=== PATIENT | male | born 1940 | race Caucasian/White ===

== ENCOUNTER 2019-12-06 17:45 | Inpatient (IN) | payer MEDICARE ==
[~2019-12-06] VITALS: Ht 167.6 cm; Wt 81.6 kg
[2019-12-06] MEDS ORDERED: BUPIVACAINE/PF 0.5% 30ML VIAL ONE (17:46)
[2019-12-06] MEDS ORDERED: CEFAZOLIN SODIUM 1 GM VIAL ONE (18:09)
[2019-12-06] MEDS ORDERED: TETANUS/DIPHTHERIA TOXOID [ADULT] 0.5 ML VIAL IM ONE (18:10)
[2019-12-06] MEDS ORDERED: SODIUM CHLORIDE 0.9% 100 ML IV ONE (18:11)
[2019-12-06 18:17] LABS: BASOPHILS % (AUTO) 0.8 % (0.0-5.0); EOSINOPHILS % (AUTO) 1.5 % (0.0-8.0); HEMATOCRIT 41.3 % (42-54); LYMPHOCYTES % (AUTO) 39.9 % (21.0-51.0); MEAN CORPUSCULAR HEMOGLOBIN 30.9 pg (27.0-33.0); MEAN CORPUSCULAR HGB CONC 33.7 g/dL (32.0-36.0); MEAN CORPUSCULAR VOLUME 91.8 fL (79-99); MONOCYTES % (AUTO) 8.1 % (3.0-13.0); NEUTROPHILS % (AUTO) 49.4 % (40.0-77.0); PLATELET COUNT (AUTO) 250 K/uL (130-400); WHITE BLOOD COUNT (AUTO) 7.9 K/uL (4.8-10.8)
[2019-12-06 18:21] LABS: CARBON DIOXIDE 29 mmol/L (21-32); CHLORIDE 104 mmol/L (101-111); CREATININE 1.1 mg/dL (0.5-1.5); GLOMERULAR FILTR. RATE CALC 69 mL/min (>60); GLUCOSE,RANDOM 94 mg/dL (70-105); POTASSIUM 3.9 mmol/L (3.5-5.1); SODIUM SERUM 140 mmol/L (136-145); UREA NITROGEN, BLOOD 15 mg/dL (7-18)
[2019-12-06 18:25] LABS: ALANINE AMINOTRANSFERASE 19 U/L (12-78); ALBUMIN 4.1 g/dL (3.5-5.0); ASPARTATE AMINOTRANSFERASE 15 U/L (10-37); BILIRUBIN,TOTAL 0.3 mg/dL (0.2-1.0); CREATINE KINASE, TOTAL 101 U/L (21-232); TOTAL PROTEIN, SERUM 7.3 g/dL (6.0-8.3)
[2019-12-06 18:27] LABS: ALCOHOL, BLOOD < 3 mg/dL (0-10)
[2019-12-06 18:33] LABS: INR 0.93 (0.85-1.15); PARTIAL THROMBOPLASTIN TIME 26.9 SEC (26.3-35.5); PROTHROMBIN TIME 10.1 SEC (9.6-11.6)
[2019-12-06 18:47] LABS: APPEARANCE,URINE Clear (CLEAR); BILIRUBIN,URINE Negative (NEGATIVE); COLOR,URINE Yellow (YELLOW); GLUCOSE, URINE (UA) Negative (NEGATIVE); KETONES,URINE Negative (NEGATIVE); LEUKOCYTE ESTERASE ,URINE Negative (NEGATIVE); NITRATE,URINE Negative (NEGATIVE); OCCULT BLOOD,URINE Negative (NEGATIVE); PH,URINE 7.5 (5.0-8.0); PROTEIN,URINE Negative (NEGATIVE); UROBILINOGEN,URINE 0.2 mg/dL (0.2-1.0)
[2019-12-06] MEDS ORDERED: MORPHINE SULFATE 4 MG/1ML SYG ONE (18:51)
[2019-12-06] MEDS ORDERED: ONDANSETRON HCL 4 MG/2 ML VIAL ONE (18:51)
[2019-12-06 18:55] LABS: AMPHET/METH SCREEN,URINE NEGATIVE (NEGATIVE); BARBITURATE SCREEN, URINE NEGATIVE (NEGATIVE); BENZODIAZEPINES SCREEN,URINE NEGATIVE (NEGATIVE); CANNABINOID SCREEN,URINE NEGATIVE (NEGATIVE); COCAINE SCREEN,URINE NEGATIVE (NEGATIVE); OPIATE SCREEN,URINE NEGATIVE (NEGATIVE); PHENCYCLIDINE SCREEN,URINE NEGATIVE (NEGATIVE)
[2019-12-06] MEDS ORDERED: OCTYL 2-CYANOACRYLATE 1 EACH TP ONE ×2 (19:03→19:11)
[2019-12-06] MEDS ORDERED: OCTYL 2-CYANOACRYLATE 1 EACH TP SCH (19:30)
[2019-12-06] MEDS ORDERED: ACETAMINOPHEN 325 MG TAB PO PRN ×2 (21:00)
[2019-12-06] MEDS ORDERED: DIPHENHYDRAMINE HCL 25 MG CAPSULE PO PRN (21:00)
[2019-12-06] MEDS ORDERED: NITROGLYCERIN 0.4 MG SL TAB SL PRN (21:00)
[2019-12-06] MEDS ORDERED: ONDANSETRON HCL 4 MG/2 ML VIAL IV PRN (21:00)
[2019-12-06 22:30] VITALS: BP 123/66
--- NOTE | 2019-12-06 23:30 | NUR ---
ADMIT PT ADMITTED TO ROOM 418, AAOX3. DRESSING TO LEFT THUMB NOTED TO BE SATURATED.PT DENIES ANY PAINS AT THIS TIME. ADMISSION CARE DONE. ADMISSION DATA BASE COMPLETED. PT IS AWARE OF SX SCHEDULED FOR THE AM. PLACED PT NPO POST MN, PT VERBALIZES UNDERSTANDING. ASSISTED PT TO SHOWER, TOLERATED ACTIVITY WELL. STARTED PT ON IVF OF NS REGULATED AT 100CC/HR. PEPCID IV ADMINISTERED WELL. DRESSING CHANGED ON LEFT THUMB, TERESSA WRAPPED REMOVED IS VERY SATURATED AND CHANGED WITH KERLIX THEN SECURED WITH TAPE. PLACED IN BED COMFORTABLY. IN FOR MORE CARE AND MANAGEMENT. Addendum: 12/07/19 at 0044 by DEEPALI SILVERIO RN RN Amended: Links added.
[2019-12-06] MEDS ORDERED: MAGN250T10 PO (23:54)
[2019-12-06] MEDS ORDERED: POTA10CA44 PO (23:54)
[2019-12-06] MEDS ORDERED: TAMS-1 PO (23:54)
[2019-12-06] MEDS ORDERED: MV-M1TAB20 PO (23:54)
[2019-12-06] MEDS ORDERED: LEVO1CAP9 PO (23:54)
[2019-12-06] MEDS ORDERED: MELO-106 PO (23:54)
[2019-12-06] MEDS ORDERED: AEC81 PO (23:54)
[2019-12-06] MEDS ORDERED: MULT-1367 PO (23:54)
[2019-12-06] MEDS ORDERED: FINA5TAB41 PO (23:54)
[2019-12-07] VITALS (17 sets, daily range): BP systolic 106–150; BP diastolic 51–93
[2019-12-07] MEDS: FAMOTIDINE/PF 20 MG/2 ML VIAL IV SCH ×2 (00:09→09:44)
[2019-12-07] MEDS: SODIUM CHLORIDE 0.9% 1000ML 1,000 ML IV SCH ×3 (00:09→16:46)
--- NOTE | 2019-12-07 01:30 | NUR ---
MANAGER LANDSCAPE VHIC, MANAGER LANDSCAPE PRINTER MAINTAINER FOR HOSPITALIST, IN TO SEE PT. NO NEW ORDERS GIVEN.
--- NOTE | 2019-12-07 04:20 | NUR ---
CONSENT PT AWAKE, NO COMPLAINTS VERBALIZED. NO DISTRESS NOTED. NO ACTIVE BLEEDING NOTED TO LEFT THUMB. CONSENT FOR SX SIGNED BY PT AND WITNESSED BY FELLER HAND. ENCOURAGED TO GO BACK TO SLEEP.
[2019-12-07 05:20] LABS: BASOPHILS % (AUTO) 0.4 % (0.0-5.0); HEMATOCRIT 36.6 % (42-54); LYMPHOCYTES % (AUTO) 30.4 % (21.0-51.0); MEAN CORPUSCULAR HEMOGLOBIN 30.6 pg (27.0-33.0); MEAN CORPUSCULAR HGB CONC 32.8 g/dL (32.0-36.0); MEAN CORPUSCULAR VOLUME 93.4 fL (79-99); MONOCYTES % (AUTO) 8.9 % (3.0-13.0); NEUTROPHILS % (AUTO) 58.2 % (40.0-77.0); PLATELET COUNT (AUTO) 218 K/uL (130-400); RED BLOOD CELL COUNT(AUTO) 3.92 MIL/uL (4.50-6.20); RED CELL DISTRIBUTION WIDTH 13.1 % (11.0-15.5); WHITE BLOOD COUNT (AUTO) 7.9 K/uL (4.8-10.8)
[2019-12-07] MEDS: CEFAZOLIN SODIUM 1 GM VIAL IVP SCH ×2 (05:28→16:31)
[2019-12-07 05:38] LABS: ALBUMIN 3.2 g/dL (3.5-5.0); BILIRUBIN,TOTAL 0.1 mg/dL (0.2-1.0); CREATININE 1.2 mg/dL (0.5-1.5); INR 0.97 (0.85-1.15); PARTIAL THROMBOPLASTIN TIME 27.3 SEC (26.3-35.5); POTASSIUM 4.2 mmol/L (3.5-5.1); PROTHROMBIN TIME 10.5 SEC (9.6-11.6); TOTAL PROTEIN, SERUM 5.9 g/dL (6.0-8.3)
--- NOTE | 2019-12-07 09:50 | NUR ---
TO OR VIA bed for surgery consent review
[2019-12-07] MEDS ORDERED: ROPIVACAINE 0.5% 5MG/ML 30ML IJ ONE (10:10)
[2019-12-07] MEDS ORDERED: LIDOCAINE HCL 2% 20ML ONE (10:10)
[2019-12-07] MEDS ORDERED: PROPOFOL 1000 MG/100 ML 100 ML IV ONE (10:29)
[2019-12-07] MEDS ORDERED: FENTANYL CITRATE PF 50 MCG/1 ML 2ML VIAL ONE (10:33)
[2019-12-07] MEDS ORDERED: ONDANSETRON HCL 4 MG/2 ML VIAL ONE (10:33)
[2019-12-07] MEDS ORDERED: NEOMY SULF/POLYMYXIN B SULFATE 1 ML AMPUL IR ONE (10:55)
[2019-12-07] MEDS ORDERED: EPHEDRINE SULFATE 50 MG/ML AMPULE ONE (11:03)
--- NOTE | 2019-12-07 12:00 | NUR ---
PT BACK FROM SURGERY. PT HAS HIS LEFT ARM IN A SLING,WITH HIS MIDINDEX FINGER SURGERY OPEN TO AIR. . DENIES ANY PAIN AND POSTOP V/S STARTED AND CALL LIGHT IN REACH...
--- NOTE | 2019-12-07 17:06 | NUR ---
CM note met with pt and states lives with spouse, independent with adls/ambulation, drives. no dme. works spray applicator. dc plan is back home. no dc needs. feels safe to return home. Addendum: 12/07/19 at 1715 by SOHEILA YATES CM Amended: Links added.
--- NOTE | 2019-12-07 17:30 | NUR ---
DISCHARGE SUMMARY WAS RE VIEW WITH PT. . QUESTIONS AND ANTIBOTICS AND APPT TO FOLLOW WITH THE DRShaneka REVIEW. SL TO HIS RFA WAS DC . NOTED NO HEMATOMA OR REDNESS . PT LEFT ARM SLING IN PLACE, WITH HIS LEFT THUMB SURGERY SITE OPEN TO AIR. DRY AND CLEAN NOTED . PT IS AWARE OF TAKING CARE OF HIS LEFT HAND LT THUMB SITE, KEEP CLEAN , DR. SUZETTE SANDS REVIEW HOW TO TAKE CARE OF IT AT HOME, THE DO NOT DO. CARE. PT . RADIAL PULSE STRONG . AND HIS OTHER FINGER TIPS . PINK WITH GOOD CAPILLARIES REFILLS NOTED . AT PRESENT .PT STATES THAT HIS NUMBNESS IS COMING DOWN, BUT IS READY FOR HIS PAIN PILLS . WILL BE TAKING HIS PRESCP IN THE PHAR. PERSONAL BELONGING WITH PT .
== END 2019-12-07 17:30 | disposition home or self-care (01) | DRG 905 ==
LOC: EDH 17:45 → EDHIP 19:56 → 4CH 23:12
PROVIDERS: ADMIT Family Medicine; ATTEND Family Medicine
PROC: 0HXGXZZ Transfer Left Hand Skin, External Approach (ICD-10-PCS; 2019-12-07)
PROC: 0JBK0ZZ Excision of Left Hand Subcutaneous Tissue and Fascia, Open Approach (ICD-10-PCS; principal; 2019-12-07 10:58)
DX: S68.012A Complete traumatic metacarpophalangeal amputation of left thumb, initial encounter (principal); M19.90 Unspecified osteoarthritis, unspecified site; X58.XXXA Exposure to other specified factors, initial encounter; Y93.89 Activity, other specified; Y92.89 Other specified places as the place of occurrence of the external cause; Y99.8 Other external cause status
CPT/HCPCS: 36415; 73130; 80053; 80305; 81003; 82550; 85025; 85610; 85730; 86850; 86900; 86901; 90714; 93005; G0378; J0690; J2270; J2405; J2704; J2795; J3010; J3490; J7030

== ENCOUNTER 2019-12-23 11:41 | Emergency (ER) | payer MEDICARE ==
[~2019-12-23 11:41] MED LIST: AEC81 PO; FINA5TAB41 PO; LEVO1CAP9 PO; MAGN250T10 PO; MELO-106 PO; MULT-1367 PO; MV-M1TAB20 PO; POTA10CA44 PO; TAMS-1 PO
[2019-12-23] MEDS ORDERED: ZOSYN 3.375GM+NS 50ML 50 ML IV ONE (12:54)
[2019-12-23] MEDS ORDERED: KETOROLAC TROMETHAMINE 15MG/ML ONE (12:54)
[2019-12-23] MEDS ORDERED: TETANUS/DIPHTHERIA TOXOID [ADULT] 0.5 ML VIAL IM ONE (13:26)
== END 2019-12-23 13:50 | disposition home or self-care (01) ==
LOC: EDH 11:41
DX: T81.40XA Infection following a procedure, unspecified, initial encounter (principal); L03.012 Cellulitis of left finger; G89.18 Other acute postprocedural pain; M79.645 Pain in left finger(s)
CPT/HCPCS: 90471; 90714; 96365; 96375; 99284; J1885; J2543

== ENCOUNTER 2020-01-11 01:16 | Emergency (ER) | payer MEDICARE ==
[2020-01-11] MEDS ORDERED: ONDANSETRON HCL 4 MG/2 ML VIAL ONE (01:43)
[2020-01-11] MEDS ORDERED: MORPHINE SULFATE 2 MG/ML 1ML SYG ONE ×2 (01:44→02:24)
[2020-01-11 01:51] LABS: BASOPHILS % (AUTO) 0.6 % (0.0-5.0); HEMATOCRIT 39.1 % (42-54); LYMPHOCYTES % (AUTO) 37.2 % (21.0-51.0); MEAN CORPUSCULAR HEMOGLOBIN 31.1 pg (27.0-33.0); MEAN CORPUSCULAR HGB CONC 33.2 g/dL (32.0-36.0); MEAN CORPUSCULAR VOLUME 93.5 fL (79-99); MONOCYTES % (AUTO) 9.6 % (3.0-13.0); NEUTROPHILS % (AUTO) 49.4 % (40.0-77.0); PLATELET COUNT (AUTO) 210 K/uL (130-400); RED BLOOD CELL COUNT(AUTO) 4.18 MIL/uL (4.50-6.20); RED CELL DISTRIBUTION WIDTH 13.2 % (11.0-15.5); WHITE BLOOD COUNT (AUTO) 6.3 K/uL (4.8-10.8)
[2020-01-11] MEDS ORDERED: LIDOCAINE HCL 2% 20ML ONE (01:55)
[2020-01-11 02:01] LABS: CREATININE 1.2 mg/dL (0.5-1.5); POTASSIUM 4.3 mmol/L (3.5-5.1)
[2020-01-11 02:03] LABS: INR 0.91 (0.85-1.15); PARTIAL THROMBOPLASTIN TIME 24.7 SEC (26.3-35.5); PROTHROMBIN TIME 9.9 SEC (9.6-11.6)
[2020-01-11 02:07] LABS: ALBUMIN 3.5 g/dL (3.5-5.0); BILIRUBIN,TOTAL 0.2 mg/dL (0.2-1.0); TOTAL PROTEIN, SERUM 6.5 g/dL (6.0-8.3)
== END 2020-01-11 04:33 | disposition home or self-care (01) ==
LOC: EDH 01:16
DX: S01.112A Laceration without foreign body of left eyelid and periocular area, initial encounter (principal); Z87.891 Personal history of nicotine dependence; W06.XXXA Fall from bed, initial encounter; Y93.89 Activity, other specified; Y92.89 Other specified places as the place of occurrence of the external cause; Y99.8 Other external cause status
CPT/HCPCS: 12011; 36415; 70450; 72125; 80053; 84484; 85025; 85610; 85730; 96374; 96375; 96376; 99285; J2405; J3490

== ENCOUNTER 2020-07-04 20:24 | Emergency (ER) | payer MEDICARE ==
[2020-07-04] MEDS ORDERED: CYCLOBENZAPRINE HCL 10 MG TABLET ONE (21:02)
[2020-07-04] MEDS ORDERED: KETOROLAC 30MG VIAL (30MG/ML) ONE (21:02)
[2020-07-04] MEDS ORDERED: HYDROCODONE/ACETAMINOPHEN 10/325 MG TAB ONE (21:03)
[2020-07-04] MEDS ORDERED: FENTANYL CITRATE PF 50 MCG/1 ML 2ML VIAL ONE (23:11)
== END 2020-07-04 23:36 | disposition home or self-care (01) ==
LOC: EDH 20:24
DX: S30.0XXA Contusion of lower back and pelvis, initial encounter (principal); S20.229A Contusion of unspecified back wall of thorax, initial encounter; S20.219A Contusion of unspecified front wall of thorax, initial encounter; W18.39XA Other fall on same level, initial encounter; Y93.89 Activity, other specified; Y92.89 Other specified places as the place of occurrence of the external cause; Y99.8 Other external cause status
CPT/HCPCS: 71250; 72128; 72131; 96372 ×2; 99285; J1885; J3010

== ENCOUNTER 2021-01-22 09:14 | Emergency (ER) | payer MEDICARE ==
[~2021-01-22] VITALS: Ht 167.6 cm; Wt 81.6 kg
[2021-01-22 09:51] LABS: BASOPHILS % (AUTO) 0.4 % (0.0-5.0); EOSINOPHILS % (AUTO) 1.5 % (0.0-8.0); HEMATOCRIT 45.9 % (42-54); LYMPHOCYTES % (AUTO) 29.8 % (21.0-51.0); MEAN CORPUSCULAR HEMOGLOBIN 30.7 pg (27.0-33.0); MEAN CORPUSCULAR HGB CONC 32.5 g/dL (32.0-36.0); MEAN CORPUSCULAR VOLUME 94.6 fL (79-99); MONOCYTES % (AUTO) 6.6 % (3.0-13.0); NEUTROPHILS % (AUTO) 61.4 % (40.0-77.0); PLATELET COUNT (AUTO) 221 K/uL (130-400); RED BLOOD CELL COUNT(AUTO) 4.85 MIL/uL (4.50-6.20); RED CELL DISTRIBUTION WIDTH 13.3 % (11.0-15.5); WHITE BLOOD COUNT (AUTO) 7.5 K/uL (4.8-10.8)
[2021-01-22] MEDS ORDERED: IOHEXOL 350 MG/ML 100ML INFUS..BTL IV ONE (09:53)
[2021-01-22] MEDS ORDERED: 0.9%NACL 1000ML 1,000 ML IV SCH (10:00)
[2021-01-22 10:29] LABS: POTASSIUM 4.1 mmol/L (3.5-5.1)
[2021-01-22 10:44] LABS: ALBUMIN 4.1 g/dL (3.5-5.0); BILIRUBIN,TOTAL 0.4 mg/dL (0.2-1.0); CREATININE 1.2 mg/dL (0.5-1.5); TOTAL PROTEIN, SERUM 7.3 g/dL (6.0-8.3)
[2021-01-22 13:25] VITALS: BP 136/55
== END 2021-01-22 13:36 | disposition home or self-care (01) ==
LOC: EDH 09:14
DX: R42 Dizziness and giddiness (principal); R26.89 Other abnormalities of gait and mobility; Z79.1 Long term (current) use of non-steroidal anti-inflammatories (NSAID); Z79.82 Long term (current) use of aspirin; Z79.899 Other long term (current) drug therapy
CPT/HCPCS: 36415; 70450; 70496; 70498; 80053; 84484; 85025; 93005; 96360; 96361; 99285; J7030; Q9967

== ENCOUNTER 2022-04-20 17:54 | Emergency (ER) | payer MEDICARE ==
[~2022-04-20] VITALS: Ht 167.6 cm; Wt 83.9 kg
[~2022-04-20 17:54] MED LIST changes: -POTA10CA44 PO; +POTA10CA45 PO
[2022-04-20 18:19] LABS: BASOPHILS % (AUTO) 0.4 % (0.0-5.0); EOSINOPHILS % (AUTO) 1.3 % (0.0-8.0); LYMPHOCYTES % (AUTO) 35.8 % (21.0-51.0); MEAN CORPUSCULAR HEMOGLOBIN 30.5 pg (27.0-33.0); MEAN CORPUSCULAR HGB CONC 32.4 g/dL (32.0-36.0); MEAN CORPUSCULAR VOLUME 94.1 fL (79-99); MONOCYTES % (AUTO) 7.9 % (3.0-13.0); NEUTROPHILS % (AUTO) 54.5 % (40.0-77.0); PLATELET COUNT (AUTO) 220 K/uL (130-400); RED BLOOD CELL COUNT(AUTO) 4.78 MIL/uL (4.50-6.20); RED CELL DISTRIBUTION WIDTH 13.1 % (11.0-15.5); WHITE BLOOD COUNT (AUTO) 7.4 K/uL (4.8-10.8)
[2022-04-20 18:29] LABS: POTASSIUM 4.4 mmol/L (3.5-5.1)
[2022-04-20 18:39] LABS: ALBUMIN 3.9 g/dL (3.5-5.0); TOTAL PROTEIN, SERUM 7.3 g/dL (6.0-8.3)
[2022-04-20 19:31] LABS: APPEARANCE,URINE CLEAR (CLEAR); BILIRUBIN,URINE NEGATIVE (NEGATIVE); COLOR,URINE COLORLESS (YELLOW); GLUCOSE, URINE (UA) NEGATIVE (NEGATIVE); KETONES,URINE NEGATIVE (NEGATIVE); LEUKOCYTE ESTERASE ,URINE NEGATIVE Leu/uL (NEGATIVE); NITRATE,URINE NEGATIVE (NEGATIVE); OCCULT BLOOD,URINE NEGATIVE (NEGATIVE); PH,URINE 6.5 (5.0-8.0); PROTEIN,URINE NEGATIVE (NEGATIVE); UROBILINOGEN,URINE 0.2 mg/dL (0.2-1.0)
[2022-04-20 19:48] LABS: RBC,URINE 0-1 /HPF (0-1)
[2022-04-20 20:38] VITALS: BP 144/47
== END 2022-04-20 21:15 | disposition home or self-care (01) ==
LOC: EDH 17:54
DX: I10 Essential (primary) hypertension (principal); R00.1 Bradycardia, unspecified; E78.00 Pure hypercholesterolemia, unspecified; Z79.1 Long term (current) use of non-steroidal anti-inflammatories (NSAID); Z79.82 Long term (current) use of aspirin; Z79.899 Other long term (current) drug therapy
CPT/HCPCS: 36415; 80053; 81001; 84484; 85025; 93005

== ENCOUNTER → 2022-05-13 | Outpatient (CLI) | payer MEDICARE | END | disposition home or self-care (01) | LOC: SHCH 08:53 | PROVIDERS: ATTEND Internal Medicine | DX: I08.1 Rheumatic disorders of both mitral and tricuspid valves (principal); I11.9 Hypertensive heart disease without heart failure | CPT/HCPCS: 93306 ==

== ENCOUNTER → 2023-01-22 | Outpatient (CLI) | payer MEDICARE ==
[~2023-01-22] MED LIST changes: -POTA10CA45 PO; +POTA10CA85 PO
== END | disposition home or self-care (01) ==
LOC: RAH 15:03
PROVIDERS: ATTEND Nurse Practitioner Family
DX: N28.1 Cyst of kidney, acquired (principal); R10.9 Unspecified abdominal pain
CPT/HCPCS: 76770

== ENCOUNTER 2025-02-14 21:15 | Emergency (ER) | payer MEDICARE ==
[~2025-02-14] VITALS: Ht 167.6 cm; Wt 83.0 kg
[~2025-02-14 21:15] MED LIST changes: +LEVO1CAP PO; -LEVO1CAP9 PO; -POTA10CA85 PO; +POTA10CA95 PO; -TAMS-1 PO; +TAMS-55 PO
--- NOTE | 2025-02-14 22:46 | HMCIMG ---
EXAM: CR Right foot, 3 Views. CLINICAL HISTORY: Pain, injury. COMPARISON: None provided. FINDINGS: BONES: No acute fracture or aggressive appearing osseous lesion. JOINTS: The joint spaces appear within normal limits. No dislocation. SOFT TISSUES: The soft tissues are unremarkable. IMPRESSION: No acute osseous abnormality. /[place]
--- NOTE | 2025-02-14 22:56 | ERN ---
ED Note History of Present Illness Stated Complaint: RIGHT FOOT INJURY Chief Complaint: FOOT INJURY/PAIN Time Seen by MD: 21:21 Time Seen by Midlevel: 21:21 Dictation: The patient is a 84-year-old male with a history of hyperlipidemia who presents to the emergency department with complaints of right foot injury onset last Sunday after he was helping someone move a large animal. Patient denies hitting his foot but reports he injured it while trying to move the object. Denies any other injuries. Allergies: Coded Allergies: No Known Drug Allergies (Verified Allergy, Unknown, 12/06/19) Home Meds Reported Medications Mv-Mn/Iron/FA/Herbal Cmplx#190 (Vitamin D3 Complete Caplet) 1 Each Tablet, 1 EACH PO DAILY, TAB 12/06/19 Potassium Chloride (Potassium Chloride) 10 Meq Capsule.er, 10 MEQ PO DAILY, CAP 12/06/19 Magnesium Oxide (Magnesium) 250 Mg Tablet, 250 MG PO DAILY, TAB 12/06/19 Aspirin (ASPIRIN 81 MG ECTAB) 81 Mg Ectab, 81 MG PO DAILY, TAB.EC 12/06/19 Multivitamin (Multivitamin) 1 Each Tablet, 1 EACH PO DAILY, TAB 12/06/19 Levomefolate/B6/B12/Algal Oil (Foltanx Rf Capsule) 1 Each Capsule, 1 EACH PO DAILY, CAP 12/06/19 Meloxicam (Meloxicam) 7.5 Mg Tablet, 7.5 MG PO DAILY, TAB 12/06/19 Finasteride (Finasteride) 5 Mg Tablet, 5 MG PO DAILY, TAB 12/06/19 Tamsulosin HCl (Flomax) 0.4 Mg Cap.er.24h, 0.8 MG PO HS, CAPSULE. 12/06/19 Past Medical History Past Medical History: High Cholesterol, Prostatitis, Other Additional Past Medical Hx: PROSTATE Surgical History: Other Surgical History Other: LEFT THUMB, HEMMORHOIDECTOMY Social History: Negative, Other RN Note Reviewed/Agreed w/PFSH: Yes Review of System Dictation Constitutional: Negative for fever,chills, and weight loss Eyes: Negative for injury, pain,redness, and discharge ENT: Negative for injury,pain or swelling Cardiovascular: Negative for chest pain, palpitations, and edema Respiratory: Negative for shortness of breath, cough, and wheezing, Abdomen/GI: Negative for abdominal pain, nausea, vomiting, diarrhea, and constipation Back: Negative for injury and pain : Negative for injury, bleeding and discharge MS/Extremity: Positive for right foot pain Skin: Negative for rash, and discoloration Neuro: Negative for headache, weakness, numbness, tingling, and seizure Psych: Negative for suicide ideation, homicidal ideation, and hallucinations Initial Vital Sign VS Vital Signs Date Time Temp Pulse Resp B/P (MAP) Pulse Ox O2 Delivery O2 Flow Rate FiO2 02/14/25 21:16 98.1 59 16 122/44 98 Room Air 0 02/14/25 21:27 21 Physical Exam Dictation Vital Signs reviewed General Appearance: Alert, oriented x 3, no acute distress, well developed, nourished. Head and Face: non-traumatic. Eyes: PERRL, pink conjunctivas, eyelid no trauma, anterior chamber with arcus senilis. Ears: Pinnas intact and no signs of trauma or erythema ear canals clear and no discharge TM no erythema Nose: No discharge, no bleeding. Oropharynx: Mouth normal, tongue pink. pharynx clear,no erythema, tonsils no exudates, no abscesses noted, mucous membrane moist Neck: Supple, non-tender, no thyromegaly, no masses, no JVD, no bruits Breast:Deferred Chest:No tenderness, no crepitus, no paradoxical movement, no retractions Lungs:Clear, well-ventilated, symmetric, no rales, no wheezing, no rhonchi, no stridor, good breath sounds bilaterally Heart: Regular rate, regular rhythm, no murmur, no gallops Vascular: no peripheral edema, dorsalis pedis 3+ bilaterally Abdomen: Soft, positive bowel sounds, nondistended, no guarding, nontender, no rebound, no masses no hepatomegaly, no splenomegaly, no Norris's sign, no hernias. Rectal: Deferred Genital: Deferred Neurological: Normal speech, motor function intact, sensory function intact Musculoskeletal: Neck nontender, full range of motion, back nontender, full range of motion, Extremities: nontender, full range of motion , right foot tenderness, no swelling, no open wounds Skin: Color pink, dry, no turgor, no rash, no lacerations, no abrasions, no contusions. Lymphatic: Deferred Results (Laboratory/Radiology) Laboratory/Radiology REASON: pain, injury ORDERING PHYSICIAN: ZOHRA DRAKE PROCEDURE: FT 3VW RT - FOOT COMP 3+VWS RT EXAM: CR Right foot, 3 Views. CLINICAL HISTORY: Pain, injury. COMPARISON: None provided. FINDINGS: BONES: No acute fracture or aggressive appearing osseous lesion. JOINTS: The joint spaces appear within normal limits. No dislocation. SOFT TISSUES: The soft tissues are unremarkable. IMPRESSION: No acute osseous abnormality. /[place] Labs Reviewed?: Yes ED Course ED Course Orders Procedure Category Date Status Time Foot Comp 3+Vws Rt RAD 02/14/25 Resulted 21:29 Ketorolac PHA 02/14/25 Complete Tromethamine 30mg/Ml 21:30 Current Medications Medications (Trade) Dose Ordered Sig/Alivia Route PRN Reason Start Time Stop Time Status Last Admin Dose Admin Ketorolac Tromethamine (toRADol) 30 mg ONCE ONCE IM 02/14/25 21:30 02/14/25 21:33 DC 02/14/25 21:40 Vital Signs Date Time Temp Pulse Resp B/P (MAP) Pulse Ox O2 Delivery O2 Flow Rate FiO2 02/14/25 21:27 98.1 59 16 122/44 98 Room Air* 0 21 02/14/25 21:16 98.1 59 16 122/44 98 Room Air 0 Medical Decision Making MDM The patient is a 84-year-old male with a history of hyperlipidemia who presents to the emergency department with complaints of right foot injury onset last Sunday after he was helping someone move a large animal. Patient denies hitting his foot but reports he injured it while trying to move the object. Denies any other injuries. X-ray showed no acute fractures. Patient is neurovascularly intact, no open wounds or erythema to area. Patient is ambulatory. Patient in no acute distress. We will be discharged to follow up with PCP. Differential diagnosis: Foot sprain, foot fracture, foot contusion Need for hospitalization: Patient does not meet criteria for hospitalization. There are no social concerns with this patient. DX & DISP Disposition: Discharge Departure Impression: Primary Impression: Right foot sprain Condition: Stable Additional Instructions: Your x-ray did not show any fractures. Please follow up with the primary doctor in 1-2 days. FOLLOW-UP WITH PRIMARY CARE PROVIDER IN 1 TO 2 DAYS. TAKE MEDICATIONS DIRECTED HERE IN THE EMERGENCY ROOM. OKAY TO CONTINUE HOME MEDICATIONS UNLESS OTHERWISE DISCUSSED DURING YOUR VISIT IN THE EMERGENCY ROOM TODAY. RETURN TO YOUR NEAREST EMERGENCY ROOM IF SYMPTOMS WORSEN OR IF THERE IS NO IMPROVEMENT. CALL 911 IF YOU NEED IMMEDIATE ASSISTANCE. TAKE TYLENOL [id number] NEEDED AND IF NO CONTRAINDICATIONS ARE PRESENT. INCREASE ORAL HYDRATION. A WOUND CULTURE OR URINE CULTURE WAS ORDERED HERE IN THE EMERGENCY ROOM DEPARTMENT PLEASE FOLLOW-UP WITH PRIMARY CARE PROVIDER AND ADVISE THEM TO GET REPEAT PORTS FROM OUR FACILITY. IF YOU HAD ANY TERESSA WRAP/SPLINTS THAT WERE APPLIED HERE, PLEASE DO NOT REMOVE THEM UNTIL YOU SEE YOUR PRIMARY CARE OR SPECIALTY. Referrals: CAMDEN RAMOS Time of Disposition: 22:55 I have reviewed the case, and I agree with, Diagnosis and Plan ZOHRA DRAKE [facility] Feb 14, 2025 22:56
[2025-02-14 22:59] VITALS: BP 124/45; PULSE 62; RESP 16; TEMP 98.1; O2SAT 98
== END 2025-02-14 23:12 | disposition home or self-care (01) ==
LOC: EDH 21:15
DX: S93.601A Unspecified sprain of right foot, initial encounter (principal); E78.00 Pure hypercholesterolemia, unspecified; Z79.1 Long term (current) use of non-steroidal anti-inflammatories (NSAID); Z79.82 Long term (current) use of aspirin; Z79.899 Other long term (current) drug therapy; X58.XXXA Exposure to other specified factors, initial encounter; Y93.89 Activity, other specified; Y92.89 Other specified places as the place of occurrence of the external cause; Y99.8 Other external cause status
CPT/HCPCS: 99283; 73630; 96372; J1885